=== PATIENT | male | born 1990 | race African-American/Black ===

== ENCOUNTER 2019-05-06 02:27 | Emergency (ER) | payer BC ==
[~2019-05-06] VITALS: Ht 170.2 cm; Wt 86.2 kg
[2019-05-06 02:45] VITALS: Ht 170.2 cm; Wt 86.2 kg
[2019-05-06 03:28] LABS: CALCIUM 8.8 mg/dL (8.5-10.1); CARBON DIOXIDE 26.2 mmol/L (21-32); CHLORIDE SERUM 105 mmol/L (98-107); GFR1 > 60 mL/min; GLUCOSE SERUM 98 mg/dL (74-106); POTASSIUM SERUM 4.8 mmol/L (3.5-5.1); SODIUM SERUM 138 mmol/L (136-145)
[2019-05-06 03:32] LABS: ALBUMIN 3.9 g/dL (3.4-5.0); ALKALINE PHOSPHATASE 46 U/L (46-116); ALT/SGPT 32 U/L (16-63); AST/SGOT 46 U/L (15-37); BILIRUBIN TOTAL 1.41 mg/dL (0.20-1.00); LIPASE 33 IU/L (73-393); TOTAL PROTEIN, SERUM 7.2 g/dL (6.4-8.2)
[2019-05-06 04:56] LABS: BASOPHIL % 0.3 % (0-2); PLATELET COUNT 192 x10^3mcL (130-400); RED CELL DISTRIBUTION WIDTH 13.8 % (11.5-14.5)
[2019-05-06 06:37] VITALS: BP 109/77
== END 2019-05-06 06:37 | disposition home or self-care (01) ==
LOC: ED 02:27
PROVIDERS: Emergency Medicine
DX: R10.817 Generalized abdominal tenderness (principal); R11.10 Vomiting, unspecified; Z90.89 Acquired absence of other organs
CPT/HCPCS: J1885; J2270; J2405; J7030; Q0162